=== PATIENT | female | born 1965 | race Two or more races ===

== ENCOUNTER 2020-06-26 23:39 | Inpatient (IN) | payer OTHER ==
[~2020-06-26] VITALS: Ht 165.1 cm; Wt 55.6 kg
[2020-06-27] MEDS ORDERED: SODIUM CHLORIDE FLUSH 10ML SYR IVF ONE ×2 (00:30→04:30)
[2020-06-27 00:34] LABS: BASOPHILS % (AUTO) 0 % (0-1); EOSINOPHILS % (AUTO) 0 % (1-7); LYMPHOCYTES % (AUTO) 15 % (22-44); MEAN CORPUSCULAR HEMOGLOBIN 28.4 pg (27.0-34.8); MEAN CORPUSCULAR HGB CONC 33.2 g/dL (32.4-35.8); MEAN PLATELET VOLUME 7.5 fL (7.4-10.4); MONOCYTES % (AUTO) 4 % (2-9); NEUTROPHILS % (AUTO) 80 % (42-75); PLATELET COUNT 438 x10^3/uL (130-400); RED BLOOD COUNT 4.47 x10^6/uL (3.82-5.3); RED CELL DISTRIBUTION WIDTH 13.7 % (9.6-15.2)
[2020-06-27 00:35] LABS: MD NO
[2020-06-27 00:46] LABS: ALBUMIN 4.1 g/dL (3.4-5.0); ANION GAP 8 mmol/L (5-15); CALCIUM 9.3 mg/dL (8.5-10.1); CHLORIDE 105 mmol/L (98-107)
[2020-06-27 00:49] LABS: ALANINE AMINOTRANSFERASE 34 U/L (12-78); ALKALINE PHOSPHATASE 51 U/L (45-117); BILIRUBIN,TOTAL 0.2 mg/dL (0.2-1.0); CREATININE 0.82 mg/dL (0.55-1.02); TOTAL PROTEIN 7.6 g/dL (6.4-8.2)
--- NOTE | 2020-06-27 01:04 | NUR ---
FREELANCE DISPLAYER: CALLED FOR PT. PT NOT IN LOBBY.
[2020-06-27] MEDS ORDERED: MAALOX/HYOSCYAMINE/LIDOCAINE 45 ML BTL ONE (02:16)
[2020-06-27] MEDS ORDERED: FAMOTIDINE 20 MG TABLET ONE (02:16)
[2020-06-27] MEDS ORDERED: MAALOX/HYOSCYAMINE/LIDOCAINE 45 ML BTL PO ONE (02:30)
[2020-06-27] MEDS ORDERED: FAMOTIDINE 20 MG TABLET PO ONE (02:30)
[2020-06-27 02:32] LABS: TROPONIN I < 0.015 ng/mL (0.000-0.045)
[2020-06-27 02:43] LABS: MICROSCOPIC INDICATED
--- NOTE | 2020-06-27 03:06 | NUR ---
LIAN RN: IV STARTED FOR CT. PT TOLERATED WELL.
[2020-06-27] MEDS ORDERED: OMNIPAQUE 350 MG/ML, 100ML BOTTLE ONE (04:28)
[2020-06-27] MEDS ORDERED: SODIUM CHLORIDE 0.9% 1,000ML IVBOLUS ONE (04:30)
[2020-06-27] MEDS ORDERED: MORPHINE SULFATE 4 MG/ML, 1ML ONE (04:49)
[2020-06-27] MEDS ORDERED: ONDANSETRON 2MG/ML, 2ML ONE (04:49)
[2020-06-27] MEDS: morphine SULFATE 10 MG/ML, 1ML IVPush PRN ×3 (04:57→20:22)
[2020-06-27] MEDS: ONDANSETRON 2MG/ML, 2ML IVPush PRN ×2 (04:58→18:10)
[2020-06-27] MEDS ORDERED: OXYcodone IR 5MG TABLET PO PRN (05:00)
[2020-06-27] MEDS ORDERED: DEXTROSE 50%, 50ML SYRINGE IVPush PRN (05:00)
[2020-06-27] MEDS ORDERED: GLUCAGON 1 MG IM PRN (05:00)
[2020-06-27] MEDS ORDERED: PROMETHAZINE 25 MG/ML, 1ML IM PRN (05:00)
[2020-06-27] MEDS ORDERED: ONDANSETRON ODT 4 MG PO PRN (05:00)
[2020-06-27] MEDS ORDERED: DEXTROSE 4 GM TAB.CHEW PO PRN (05:00)
[2020-06-27] MEDS ORDERED: ANTIDEPRESSANT (05:16)
[2020-06-27] MEDS ORDERED: METF500T17 PO (05:16)
[2020-06-27 05:54] LABS: FREE T4 (FREE THYROXINE) 0.95 ng/dL (0.76-1.46)
[2020-06-27 05:58] VITALS: BP 133/83
[2020-06-27] MEDS: NS + 20MEQ KCL 1,000 ML IV SCH ×2 (07:00→17:16)
[2020-06-27] MEDS: INSULIN LISPRO 100 UNITS/ML, PEN SQ-INSULIN SCH ×4 (07:09→20:24)
[2020-06-27 07:34] VITALS: BP 107/53
[2020-06-27] MEDS: SODIUM CHLORIDE FLUSH 10ML SYR IVF SCH ×2 (08:36→20:22)
[2020-06-27] MEDS: PANTOPRAZOLE 40 MG IV IVPush SCH ×2 (08:36→20:22)
[2020-06-27] MEDS ORDERED: VENL75TA PO (10:37)
[2020-06-27 12:38] VITALS: BP 96/63
[2020-06-27 18:42] VITALS: BP 113/74
[2020-06-27] MEDS ORDERED: METR-90 PO (23:14)
[2020-06-27] MEDS ORDERED: VENL75CA6 PO (23:14)
[2020-06-27] MEDS ORDERED: CLAR-14 PO (23:14)
[2020-06-27] MEDS ORDERED: PANT20TA4 PO (23:14)
[2020-06-27] MEDS ORDERED: OMEP20CA20 PO (23:14)
[2020-06-28 01:21] VITALS: BP 106/64
[2020-06-28] MEDS: NS + 20MEQ KCL 1,000 ML IV SCH (01:46)
[2020-06-28] MEDS: INSULIN LISPRO 100 UNITS/ML, PEN SQ-INSULIN SCH ×4 (06:33→22:41)
[2020-06-28 06:43] LABS: BASOPHILS % (AUTO) 0 % (0-1); EOSINOPHILS % (AUTO) 0 % (1-7); LYMPHOCYTES % (AUTO) 14 % (22-44); MEAN CORPUSCULAR HEMOGLOBIN 28.4 pg (27.0-34.8); MEAN CORPUSCULAR HGB CONC 32.6 g/dL (32.4-35.8); MEAN PLATELET VOLUME 7.5 fL (7.4-10.4); MONOCYTES % (AUTO) 4 % (2-9); NEUTROPHILS % (AUTO) 81 % (42-75); PLATELET COUNT 400 x10^3/uL (130-400); RED BLOOD COUNT 4.24 x10^6/uL (3.82-5.3); RED CELL DISTRIBUTION WIDTH 13.7 % (9.6-15.2)
[2020-06-28 06:49] LABS: ALBUMIN 3.5 g/dL (3.4-5.0); ANION GAP 7 mmol/L (5-15); CALCIUM 7.9 mg/dL (8.5-10.1); CHLORIDE 112 mmol/L (98-107)
[2020-06-28 06:50] LABS: MD NO
[2020-06-28 06:53] LABS: ALANINE AMINOTRANSFERASE 25 U/L (12-78); ALKALINE PHOSPHATASE 36 U/L (45-117); BILIRUBIN,TOTAL 0.4 mg/dL (0.2-1.0); CHOL/HDL RATIO 3.3; CHOLESTEROL, TOTAL 157 mg/dL (140-239); CREATININE 0.79 mg/dL (0.55-1.02); HDL CHOL % 31 % (28-40); HDL CHOLESTEROL (DIRECT) 48 mg/dL (40-60); LDL CHOLESTEROL,CALCULATED 94 mg/dL (54-169); TOTAL PROTEIN 6.6 g/dL (6.4-8.2); TRIGLYCERIDES 73 mg/dL (50-200); VLDL CHOLESTEROL 15 mg/dL (0-25)
[2020-06-28 07:40] VITALS: BP 125/78
[2020-06-28] MEDS: PANTOPRAZOLE 40 MG IV IVPush SCH ×2 (10:04→22:34)
[2020-06-28] MEDS: SODIUM CHLORIDE FLUSH 10ML SYR IVF SCH ×2 (10:04→22:35)
[2020-06-28] MEDS: SODIUM CHLORIDE 0.9% 1,000 ML IV SCH ×2 (11:45→22:35)
[2020-06-28 13:43] VITALS: BP 100/63
[2020-06-28 15:16] LABS: MICROSCOPIC NOT IND
[2020-06-28 20:19] VITALS: BP 103/65
[2020-06-28] MEDS: VENLAFAXINE XR 37.5MG CAP.ER.24H PO SCH (22:35)
[2020-06-29 03:28] VITALS: BP 110/64
[2020-06-29 06:26] LABS: BASOPHILS % (AUTO) 0 % (0-1); EOSINOPHILS % (AUTO) 1 % (1-7); LYMPHOCYTES % (AUTO) 32 % (22-44); MEAN CORPUSCULAR HEMOGLOBIN 28.9 pg (27.0-34.8); MEAN CORPUSCULAR HGB CONC 33.7 g/dL (32.4-35.8); MEAN PLATELET VOLUME 7.6 fL (7.4-10.4); MONOCYTES % (AUTO) 8 % (2-9); NEUTROPHILS % (AUTO) 59 % (42-75); PLATELET COUNT 383 x10^3/uL (130-400); RED BLOOD COUNT 4.12 x10^6/uL (3.82-5.3); RED CELL DISTRIBUTION WIDTH 13.9 % (9.6-15.2)
[2020-06-29 06:30] LABS: CHLORIDE 110 mmol/L (98-107)
[2020-06-29 06:46] LABS: ALANINE AMINOTRANSFERASE 24 U/L (12-78); ALBUMIN 3.3 g/dL (3.4-5.0); ALKALINE PHOSPHATASE 37 U/L (45-117); ANION GAP 8 mmol/L (5-15); BILIRUBIN,TOTAL 0.4 mg/dL (0.2-1.0); CALCIUM 8.2 mg/dL (8.5-10.1); CREATININE 0.64 mg/dL (0.55-1.02); TOTAL PROTEIN 6.8 g/dL (6.4-8.2)
[2020-06-29 06:57] LABS: MD NO
[2020-06-29] MEDS: INSULIN LISPRO 100 UNITS/ML, PEN SQ-INSULIN SCH ×4 (07:02→21:00)
[2020-06-29 07:59] VITALS: BP 107/70
[2020-06-29] MEDS: VENLAFAXINE XR 37.5MG CAP.ER.24H PO SCH (09:07)
[2020-06-29] MEDS: PANTOPRAZOLE 40 MG IV IVPush SCH ×2 (09:07→21:45)
[2020-06-29] MEDS: SODIUM CHLORIDE FLUSH 10ML SYR IVF SCH ×2 (09:07→21:45)
[2020-06-29] MEDS: SODIUM CHLORIDE 0.9% 1,000 ML IV SCH ×2 (10:57→21:53)
[2020-06-29 14:09] VITALS: BP 108/71
[2020-06-29 19:02] VITALS: BP 100/64
[2020-06-30 01:27] VITALS: BP 96/60
[2020-06-30 06:55] VITALS: BP 101/63
[2020-06-30] MEDS: INSULIN LISPRO 100 UNITS/ML, PEN SQ-INSULIN SCH ×2 (07:00→11:00)
[2020-06-30] MEDS: VENLAFAXINE XR 37.5MG CAP.ER.24H PO SCH (09:39)
[2020-06-30] MEDS: PANTOPRAZOLE 40 MG IV IVPush SCH (09:39)
[2020-06-30] MEDS: SODIUM CHLORIDE FLUSH 10ML SYR IVF SCH (09:39)
[2020-06-30] MEDS: SODIUM CHLORIDE 0.9% 1,000 ML IV SCH (11:15)
[2020-06-30 14:27] VITALS: BP 105/66
== END 2020-06-30 16:10 | disposition home or self-care (01) | DRG 390 ==
LOC: ED 06-27 02:29 → EDIP 06-27 04:39 → 4NE 06-27 05:50
PROVIDERS: ADMIT Internal Medicine; ATTEND Internal Medicine
DX: K56.51 Intestinal adhesions [bands], with partial obstruction (principal); E11.9 Type 2 diabetes mellitus without complications; E87.6 Hypokalemia; F32.9 Major depressive disorder, single episode, unspecified; K21.9 Gastro-esophageal reflux disease without esophagitis; K44.9 Diaphragmatic hernia without obstruction or gangrene
CPT/HCPCS: 36415; 71045; 74018; 74177; 74250; 80053; 80061; 81001; 81003; 82962; 83036; 83690; 83735; 84100; 84145; 84439; 84443; 84484; 85025; 87086; 93005; 99285; G0378; J2405; J3480; Q9967; C9113; J2270; J7030